=== PATIENT | female | born 1985 | race Caucasian/White ===

== ENCOUNTER 2021-04-18 09:16 | Emergency (ER) | payer BC ==
[2021-04-18] MEDS ORDERED: Sodium Chloride 0.9% 10 ML Syringe FLUSH PRN (09:56)
[2021-04-18] MEDS ORDERED: Ondansetron 4 MG/2 ML SDV IVPUSH ONE (09:56)
[2021-04-18] MEDS ORDERED: methylPREDNISolone Sodium Succinate 125 MG/2 ML SDV IVPUSH PRN (09:57)
[2021-04-18] MEDS ORDERED: Dexamethasone 4 MG/ML SDV IVPUSH ONE (09:57)
[2021-04-18] MEDS ORDERED: diphenhydrAMINE 50 MG/ML SDV IVPUSH PRN (09:57)
[2021-04-18] MEDS ORDERED: Famotidine 20 MG/2 ML SDV IVPUSH PRN (09:57)
[2021-04-18] MEDS ORDERED: EPINEPHrine 1 MG/ML SDV IM PRN (09:57)
[2021-04-18] MEDS ORDERED: Sodium Chloride 0.9% 10 ML Syringe FLUSH SCH (10:00)
[2021-04-18] MEDS ORDERED: Sodium Chloride 0.9% 1,000 ML IV SCH (10:00)
--- NOTE | 2021-04-18 11:37 | EDM.PDOC ---
ED HPI GENERAL MEDICAL PROBLEM - General Chief Complaint: General Stated Complaint: COVID POS Time Seen by Provider: 04/18/21 09:33 Source of Information: Reports: Patient History Limitations: Reports: No Limitations - History of Present Illness INITIAL COMMENTS - FREE TEXT/NARRATIVE: The patient presents with nausea, fever, chills, and generalized weakness. She is COVID positive. She has a slight cough. Her boyfriend had it first. She has no chest pain, shortness of breath, or abdominal pain. She does have some diarrhea. She is overweight and she has hypertension. She does not smoke. Onset: Gradual Duration: Day(s): Severity: Moderate Improves with: Reports: None Worsens with: Reports: None Associated Symptoms: Reports: Cough, Fever/Chills, Nausea/Vomiting. Denies: Headaches, Shortness of Breath Headache Pain Score (Numeric/FACES): 8 - Related Data Allergies Allergy/AdvReac Type Severity Reaction Status Date / Time amoxicillin Allergy Severe Rash Verified 04/18/21 09:31 codeine Allergy Severe Hives Verified 04/18/21 09:31 Penicillins Allergy Severe Hives Verified 04/18/21 09:31 aspirin AdvReac Severe Stomach Verified 04/18/21 09:31 Upset Home Meds: Home Meds Acetaminophen [Tylenol] 650 mg PO Q4H PRN 04/08/19 [History] Acetaminophen/Chlorpheniramine [Coricidin HBP Cold & Flu] 1 tab PO Q6H PRN 04/08/19 [History] Escitalopram Oxalate [Lexapro] 20 mg PO DAILY 04/08/19 [History] Metoprolol Succinate [Toprol Xl] 100 mg PO DAILY 04/08/19 [History] Multivitamin [Poly-Vitamin] 1 tab PO DAILY 04/08/19 [History] Pravastatin Sodium [Pravastatin (Pravachol)] 40 mg PO DAILY 04/08/19 [History] amLODIPine Besylate [Norvasc] 10 mg PO DAILY 04/08/19 [History] hydroCHLOROthiazide [Hydrochlorothiazide] 25 mg PO DAILY 04/08/19 [History] Empagliflozin [Jardiance] 25 mg PO DAILY 04/18/21 [History] Ondansetron [Zofran ODT] 4 mg PO Q6H PRN #20 tab.dis 04/18/21 [Rx] Semaglutide [Ozempic] 1 mg SQ WEEKLY 04/18/21 [History] dexAMETHasone [Dexamethasone] 6 mg PO ONETIME #9 tab 04/18/21 [Rx] metFORMIN [Glucophage] 1,000 mg PO BID 04/18/21 [History] Past Medical History HEENT History: Reports: Impaired Vision, Other (See Below) Other HEENT History: glasses, tympanoplasty, oral Cardiovascular History: Reports: High Cholesterol, Hypertension Respiratory History: Reports: None Gastrointestinal History: Reports: Chronic Constipation, GERD, Other (See Below) Other Gastrointestinal History: diverticular abcess with intestional bowel resection Genitourinary History: Reports: Other (See Below) Other Genitourinary History: PCOS, dysfunctional uterine bleeding 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: Musculoskeletal History: Reports: Other (See Below) Other Musculoskeletal History: carpal tunnel syndrome bilateral Neurological History: Reports: Headaches, Chronic Psychiatric History: Reports: Anxiety, Depression Endocrine/Metabolic History: Reports: Diabetes, Type II, Obesity/BMI 30+ Hematologic History: Reports: Anemia, Iron Deficiency Immunologic History: Reports: None Oncologic (Cancer) History: Reports: None Dermatologic History: Reports: Other (See Below) Other Dermatologic History: ingrown toenail, lipoma excision, incision and drainage - Infectious Disease History Infectious Disease History: Reports: Novel Coronavirus - Past Surgical History GI Surgical History: Reports: Cholecystectomy Female Surgical History: Reports: Section Social & Family History - Tobacco Use Tobacco Use Status *Q: Never Tobacco User - Caffeine Use Caffeine Use: Reports: Coffee, Soda - Recreational Drug Use Recreational Drug Use: No ED ROS GENERAL - Review of Systems Review Of Systems: See Below Constitutional: Reports: No Symptoms HEENT: Reports: No Symptoms Respiratory: Reports: Shortness of Breath, Cough Cardiovascular: Reports: No Symptoms Endocrine: Reports: No Symptoms GI/Abdominal: Reports: Nausea, Vomiting. Denies: Abdominal Pain : Reports: No Symptoms Musculoskeletal: Reports: No Symptoms ED EXAM, GENERAL - Physical Exam Exam: See Below Exam Limited By: No Limitations General Appearance: Alert, No Apparent Distress Ears: Normal External Exam Nose: Normal Inspection Head: Atraumatic, Normocephalic Neck: Normal Inspection Respiratory/Chest: No Respiratory Distress, Lungs Clear, Normal Breath Sounds Cardiovascular: Regular Rate, Rhythm, No Edema, No Murmur GI/Abdominal: Soft, Non-Tender, No Organomegaly, No Mass Back Exam: Normal Inspection Course - Vital Signs Last Recorded V/S: Last Vital Signs Temp 97.4 F 04/18/21 09:28 Pulse 92 04/18/21 09:28 Resp 16 04/18/21 09:28 BP 120/86 04/18/21 09:28 Pulse Ox 90 L 04/18/21 09:28 - Orders/Labs/Meds Orders: Active Orders 24 hr Category Date Time Status Cardiac Monitoring [RC] . DIRECTED Care 04/18/21 09:56 Active Oxygen Therapy [RC] PRN Care 04/18/21 09:56 Active Peripheral IV Care [RC] . DIRECTED Care 04/18/21 09:56 Active Vital Signs [RC] Q15M Care 04/18/21 09:58 Active Chest 1V Frontal [CR] Stat Exams 04/18/21 09:57 Taken EPINEPHrine [Adrenalin] Med 04/18/21 09:57 Active 0.3 mg IM ONETIME PRN Famotidine [Pepcid] Med 04/18/21 09:57 Active 20 mg IVPUSH ONETIME PRN Sodium Chloride 0.9% [Normal Saline] 1,000 ml Med 04/18/21 10:00 Active IV .BOLUS Sodium Chloride 0.9% [Saline Flush] Med 04/18/21 09:56 Active 10 ml FLUSH ASDIRECTED PRN Sodium Chloride 0.9% [Saline Flush] Med 04/18/21 10:00 Active 30 ml FLUSH ASDIRECTED diphenhydrAMINE [Benadryl] Med 04/18/21 09:57 Active 50 mg IVPUSH ONETIME PRN methylPREDNISolone Sod Succ [Solu-MEDROL] Med 04/18/21 09:57 Active 125 mg IVPUSH ONETIME PRN ED Antiemetic Medication Reflex [OM.PC] Stat Oth 04/18/21 09:56 Ordered Peripheral IV Insertion Adult [OM.PC] Stat Oth 04/18/21 09:56 Ordered Medication Orders Diphenhydramine HCl (Diphenhydramine 50 Mg/Ml Sdv) 50 mg IVPUSH ONETIME PRN PRN Reason: hypersensitivity reaction Epinephrine HCl (Epinephrine 1 Mg/Ml Sdv) 0.3 mg IM ONETIME PRN PRN Reason: hypersensitivity reaction Famotidine (Famotidine 20 Mg/2 Ml Sdv) 20 mg IVPUSH ONETIME PRN PRN Reason: hypersensitivity reaction Sodium Chloride (Normal Saline) 1,000 mls @ 1,000 mls/hr IV .BOLUS [facility] Last Admin: 04/18/21 11:35 Dose: 1,000 mls/hr Documented by: ZACH Methylprednisolone Sodium Succinate (Methylprednisolone Sodium Succinate 125 Mg/2 Ml Sdv) 125 mg IVPUSH ONETIME PRN PRN Reason: hypersensitivity reaction Sodium Chloride (Sodium Chloride 0.9% 10 Ml Syringe) 30 ml FLUSH ASDIRECTED MENDEZ Last Admin: 04/18/21 12:00 Dose: 30 ml Documented by: ZACH Sodium Chloride (Sodium Chloride 0.9% 10 Ml Syringe) 10 ml FLUSH ASDIRECTED PRN PRN Reason: Keep Vein Open Last Admin: 04/18/21 12:00 Dose: 10 ml Documented by: ZACH Labs: Laboratory Tests 04/18/21 04/18/21 04/18/21 Range/Units 10:45 10:45 10:45 WBC 6.33 (3.98-10.04) K/mm3 RBC 5.55 H (3.98-5.22) M/mm3 Hgb 14.6 (11.2-15.7) gm/dl Hct 46.6 H (34.1-44.9) % MCV 84.0 D (79.4-94.8) fl MCH 26.3 (25.6-32.2) pg MCHC 31.3 L (32.2-35.5) g/dl RDW Std Deviation 47.4 H (36.4-46.3) fL Plt Count 219 D (182-369) K/mm3 MPV 11.9 (9.4-12.3) fl Neut % (Auto) 64.8 (34.0-71.1) % Lymph % (Auto) 22.7 (19.3-51.7) % [place] % (Auto) 11.7 (4.7-12.5) % Eos % (Auto) 0 L (0.7-5.8) Baso % (Auto) 0.5 (0.1-1.2) % Neut # (Auto) 4.10 (1.56-6.13) K/mm3 Lymph # (Auto) 1.44 (1.18-3.74) K/mm3 [place] # (Auto) 0.74 H (0.24-0.36) K/mm3 Eos # (Auto) 0.00 L (0.04-0.36) K/mm3 Baso # (Auto) 0.03 (0.01-0.08) K/mm3 D-Dimer, Quantitative 0.28 (0.19-0.50) mg/L Sodium 138 (136-145) mEq/L Potassium 4.1 (3.5-5.1) mEq/L Chloride 100 (98-107) mEq/L Carbon Dioxide 28 (21-32) mEq/L Anion Gap 14.1 (5-15) BUN 9 (7-18) mg/dL Creatinine 0.8 (0.55-1.02) mg/dL Est Cr Clr Drug Dosing 81.19 mL/min Estimated GFR (MDRD) > 60 (>60) mL/min BUN/Creatinine Ratio 11.3 L (14-18) Glucose 216 H (70-99) mg/dL Lactic Acid (0.4-2.0) mmol/L Calcium 8.7 (8.5-10.1) mg/dL Total Bilirubin 0.2 (0.2-1.0) mg/dL AST 91 H (15-37) U/L ALT 96 H (14-59) U/L Alkaline Phosphatase 65 (46-116) U/L C-Reactive Protein 4.9 H* (<1.0) mg/dL Total Protein 7.6 (6.4-8.2) g/dl Albumin 3.4 (3.4-5.0) g/dl Globulin 4.2 gm/dL Albumin/Globulin Ratio 0.8 L (1-2) 04/18/21 Range/Units 10:45 WBC (3.98-10.04) K/mm3 RBC (3.98-5.22) M/mm3 Hgb (11.2-15.7) gm/dl Hct (34.1-44.9) % MCV (79.4-94.8) fl MCH (25.6-32.2) pg MCHC (32.2-35.5) g/dl RDW Std Deviation (36.4-46.3) fL Plt Count (182-369) K/mm3 MPV (9.4-12.3) fl Neut % (Auto) (34.0-71.1) % Lymph % (Auto) (19.3-51.7) % [place] % (Auto) (4.7-12.5) % Eos % (Auto) (0.7-5.8) Baso % (Auto) (0.1-1.2) % Neut # (Auto) (1.56-6.13) K/mm3 Lymph # (Auto) (1.18-3.74) K/mm3 [place] # (Auto) (0.24-0.36) K/mm3 Eos # (Auto) (0.04-0.36) K/mm3 Baso # (Auto) (0.01-0.08) K/mm3 D-Dimer, Quantitative (0.19-0.50) mg/L Sodium (136-145) mEq/L Potassium (3.5-5.1) mEq/L Chloride (98-107) mEq/L Carbon Dioxide (21-32) mEq/L Anion Gap (5-15) BUN (7-18) mg/dL Creatinine (0.55-1.02) mg/dL Est Cr Clr Drug Dosing mL/min Estimated GFR (MDRD) (>60) mL/min BUN/Creatinine Ratio (14-18) Glucose (70-99) mg/dL Lactic Acid 2.8 H* (0.4-2.0) mmol/L Calcium (8.5-10.1) mg/dL Total Bilirubin (0.2-1.0) mg/dL AST (15-37) U/L ALT (14-59) U/L Alkaline Phosphatase (46-116) U/L C-Reactive Protein (<1.0) mg/dL Total Protein (6.4-8.2) g/dl Albumin (3.4-5.0) g/dl Globulin gm/dL Albumin/Globulin Ratio (1-2) Meds: Medications Generic Name Dose Route Start Last Admin Trade Name Freq PRN Reason Stop Dose Admin Diphenhydramine HCl 50 mg 04/18/21 09:57 Diphenhydramine 50 Mg/Ml Sdv IVPUSH ONETIME PRN hypersensitivity reaction Epinephrine HCl 0.3 mg 04/18/21 09:57 Epinephrine 1 Mg/Ml Sdv IM ONETIME PRN hypersensitivity reaction Famotidine 20 mg 04/18/21 09:57 Famotidine 20 Mg/2 Ml Sdv IVPUSH ONETIME PRN hypersensitivity reaction Sodium Chloride 1,000 mls @ 1,000 mls/hr 04/18/21 10:00 04/18/21 11:35 Normal Saline IV 1,000 mls/hr .BOLUS MENDEZ Administration Methylprednisolone Sodium Succinate 125 mg 04/18/21 09:57 Methylprednisolone Sodium Succinate 125 Mg/2 Ml Sdv IVPUSH ONETIME PRN hypersensitivity reaction Sodium Chloride 30 ml 04/18/21 10:00 04/18/21 12:00 Sodium Chloride 0.9% 10 Ml Syringe FLUSH 30 ml ASDIRECTED MENDEZ Administration Sodium Chloride 10 ml 04/18/21 09:56 04/18/21 12:00 Sodium Chloride 0.9% 10 Ml Syringe FLUSH 10 ml ASDIRECTED PRN Administration Keep Vein Open Discontinued Medications Generic Name Dose Route Start Last Admin Trade Name Freq PRN Reason Stop Dose Admin Dexamethasone 6 mg 04/18/21 09:57 04/18/21 10:29 Dexamethasone 4 Mg/Ml Sdv IVPUSH 04/18/21 09:58 6 mg ONETIME ONE Administration CASIRIVIMAB/IMDEVIMAB 10 ml/ 110 mls @ 220 mls/hr 04/18/21 09:57 04/18/21 10:15 Sodium Chloride IV 04/18/21 10:26 220 mls/hr ONETIME ONE Administration Ondansetron HCl 4 mg 04/18/21 09:56 04/18/21 10:29 Ondansetron 4 Mg/2 Ml Sdv IVPUSH 04/18/21 09:57 4 mg ONETIME ONE Administration - Re-Assessments/Exams Free Text/Narrative Re-Assessment/Exam: 04/18/21 11:39 I ordered an IV NS 1L bolus, zofran 4mg IV, dexamethasone 6 grams IV, REGEN-COV, CXR and labs. Her CBC looks good. Her D-dimer was normal. Her CXR shows no infiltrates. 04/18/21 12:17 She feels better. I will get her on some dexamethasone and zofran. Departure - Departure Time of Disposition: 12:20 Disposition: Home, Self-Care 01 Condition: Good Clinical Impression: COVID-19 Nausea and vomiting Qualifiers: Vomiting type: unspecified Vomiting Intractability: non-intractable Qualified Code(s): R11.2 - Nausea with vomiting, unspecified - Discharge Information *PRESCRIPTION DRUG MONITORING PROGRAM REVIEWED*: Not Applicable *COPY OF PRESCRIPTION DRUG MONITORING REPORT IN PATIENT MARLEN: Not Applicable Prescriptions: dexAMETHasone [Dexamethasone] 6 mg PO ONETIME #9 tab Ondansetron [Zofran ODT] 4 mg PO Q6H PRN #20 tab.dis PRN Reason: Nausea\vomiting Referrals: Tatianna Gu NP [Primary Care Provider] - 1 Week Forms: ED Department Discharge Additional Instructions: Drink plenty of fluids. Take the dexamethasone daily until gone. Take the zofran eveyr 6 hours as needed for nausea and vomiting. Please return if you are worse. Sepsis Event Note (ED) - Focused Exam Vital Signs: Vital Signs Temp Pulse Resp BP Pulse Ox 04/18/21 09:28 97.4 F 92 16 120/86 90 L - My Orders Last 24 Hours: My Active Orders 04/18/21 09:56 Cardiac Monitoring [RC] . DIRECTED Oxygen Therapy [RC] PRN Peripheral IV Care [RC] . DIRECTED Sodium Chloride 0.9% [Saline Flush] 10 ml FLUSH ASDIRECTED PRN ED Antiemetic Medication Reflex [OM.PC] Stat Peripheral IV Insertion Adult [OM.PC] Stat 04/18/21 09:57 Chest 1V Frontal [CR] Stat EPINEPHrine [Adrenalin] 0.3 mg IM ONETIME PRN Famotidine [Pepcid] 20 mg IVPUSH ONETIME PRN diphenhydrAMINE [Benadryl] 50 mg IVPUSH ONETIME PRN methylPREDNISolone Sod Succ [Solu-MEDROL] 125 mg IVPUSH ONETIME PRN 04/18/21 09:58 Vital Signs [RC] Q15M 04/18/21 10:00 Sodium Chloride 0.9% [Normal Saline] 1,000 ml IV .BOLUS Sodium Chloride 0.9% [Saline Flush] 30 ml FLUSH ASDIRECTED - Assessment/Plan Last 24 Hours: My Active Orders 04/18/21 09:56 Cardiac Monitoring [RC] . DIRECTED Oxygen Therapy [RC] PRN Peripheral IV Care [RC] . DIRECTED Sodium Chloride 0.9% [Saline Flush] 10 ml FLUSH ASDIRECTED PRN ED Antiemetic Medication Reflex [OM.PC] Stat Peripheral IV Insertion Adult [OM.PC] Stat 04/18/21 09:57 Chest 1V Frontal [CR] Stat EPINEPHrine [Adrenalin] 0.3 mg IM ONETIME PRN Famotidine [Pepcid] 20 mg IVPUSH ONETIME PRN diphenhydrAMINE [Benadryl] 50 mg IVPUSH ONETIME PRN methylPREDNISolone Sod Succ [Solu-MEDROL] 125 mg IVPUSH ONETIME PRN 04/18/21 09:58 Vital Signs [RC] Q15M 04/18/21 10:00 Sodium Chloride 0.9% [Normal Saline] 1,000 ml IV .BOLUS Sodium Chloride 0.9% [Saline Flush] 30 ml FLUSH ASDIRECTED
--- NOTE | 2021-04-18 13:55 | CR ---
Chest: Portable view of the chest was obtained. Comparison: No prior chest imaging is available. Patchy increased density within the right upper chest is seen. Heart size and mediastinum are within normal limits for portable technique. Bony structures are unremarkable. Impression: 1. Patchy density within the right upper chest. Please correlate if patient has any symptoms to suggest pneumonia. Follow-up chest x-ray is recommended to make sure this resolves. Diagnostic code #3
== END 2021-04-18 12:30 | disposition home or self-care (01) ==
LOC: JD.ED 09:16
DX: U07.1 COVID-19 (principal); R11.2 Nausea with vomiting, unspecified; E78.00 Pure hypercholesterolemia, unspecified; I10 Essential (primary) hypertension; E11.9 Type 2 diabetes mellitus without complications; E66.9 Obesity, unspecified; Z68.41 Body mass index [BMI] 40.0-44.9, adult; Z88.0 Allergy status to penicillin; Z88.5 Allergy status to narcotic agent; Z88.8 Allergy status to other drugs, medicaments and biological substances; Z86.16 Personal history of COVID-19
CPT/HCPCS: 36415; 71045; 80053; 83605; 85025; 85379; 86140; 96374; 96375; 99285; J1100; J2405; J7030; M0243; Q0243; 99284